=== PATIENT | male | born 1975 | race Caucasian/White ===

== ENCOUNTER 2022-03-25 23:57 | Emergency (ER) | payer OTHER ==
[~2022-03-25] VITALS: Ht 195.6 cm; Wt 93.5 kg
[2022-03-26] MEDS ORDERED: METOCLOPRAMIDE HCL 10MG/2ML VIAL IM ONE (01:30)
[2022-03-26 02:00] VITALS: BP 136/80
== END 2022-03-26 02:25 | disposition home or self-care (01) ==
LOC: ER 23:57
DX: R09.89 Other specified symptoms and signs involving the circulatory and respiratory systems (principal)
CPT/HCPCS: 96372; 99283; J2765